=== PATIENT | female | born 1995 | race American Indian/Alaskan Native ===

== ENCOUNTER 2018-09-24 13:00 | Emergency (ER) | payer SELFPAY ==
--- NOTE | 2018-09-24 13:46 | EDM.PDOC ---
ED HPI GENERAL MEDICAL PROBLEM - General Chief Complaint: Upper Extremity Injury/Pain Stated Complaint: L PINKY FINGER INJURY Time Seen by Provider: 09/24/18 13:45 Source of Information: Reports: Patient - History of Present Illness INITIAL COMMENTS - FREE TEXT/NARRATIVE: This is here for evaluation to her left pinky finger. She states that she slipped on the ice this morning fell and landed on it. She states it was just formed, she thought it was dislocated so she straighten it out. Pain has persisted and now bruising. Patient has no previous history of injury to this area. She is overall healthy. Left Finger-Little Pain Score (Numeric/FACES): 8 - Related Data Allergies Allergy/AdvReac Type Severity Reaction Status Date / Time No Known Allergies Allergy Verified 09/24/18 13:33 Home Meds: Home Meds Acetaminophen/HYDROcodone [[place] 325-5 MG] 1 tab PO Q6H PRN #10 tablet 09/24/18 [Rx] Past Medical History - Past Health History Medical/Surgical History: Denies Medical/Surgical History Social & Family History - Tobacco Use Smoking Status *Q: Never Smoker - Caffeine Use Caffeine Use: Reports: Soda, Tea - Recreational Drug Use Recreational Drug Use: No Review of Systems - Review of Systems Review Of Systems: See Below Respiratory: Reports: No Symptoms Cardiovascular: Reports: No Symptoms Musculoskeletal: Reports: Other (Pain to left pinky and into hand.) Skin: Reports: Bruising Neurological: Reports: No Symptoms ED EXAM, GENERAL - Physical Exam Exam: See Below Exam Limited By: No Limitations General Appearance: Alert, WD/WN, No Apparent Distress Respiratory/Chest: No Respiratory Distress, Lungs Clear, Normal Breath Sounds Cardiovascular: Normal Peripheral Pulses, Regular Rate, Rhythm, No Murmur Peripheral Pulses: 2+: Radial (L) Extremities: Other (Area of ecchymosis at the base of the left achy finger over the MCP and into the palm. Full range of motion of all fingers but patient had significant pain with this to her pinky finger. Vascular intact.) Neurological: Alert, Oriented, No Motor/Sensory Deficits Psychiatric: Normal Affect, Normal Mood Lymphatic: No Adenopathy ED TRAUMA EXTREMITY PROCEDURES - Splinting Left Upper Extremity Splint Site: Left ulnar from distal Pre-Procedure NV Status: Normal (splint.) Post-Procedure NV Status: Normal Splint Material: Fiberglass, Ehrberth Tape Splint Design: Volar, Gutter Applied & Form Fitted By: Provider Provider Post-Splint Application NV Check: NV Status Normal, Good Position Complications: No Course - Vital Signs Last Recorded V/S: Last Vital Signs Temp 97.9 F 09/24/18 13:31 Pulse 60 09/24/18 13:31 Resp 20 09/24/18 13:31 BP 127/58 L 09/24/18 13:31 Pulse Ox 97 09/24/18 13:31 - Orders/Labs/Meds Orders: Active Orders 24 hr Category Date Time Status Hand Comp Min 3V Lt [CR] Stat Exams 09/24/18 13:35 Taken Meds: Medications Discontinued Medications Generic Name Dose Route Start Last Admin Trade Name Comfort PRN Reason Stop Dose Admin Acetaminophen 650 mg 09/24/18 14:15 09/24/18 14:48 Tylenol PO 09/24/18 14:16 650 mg NOW ONE Administration - Re-Assessments/Exams Free Text/Narrative Re-Assessment/Exam: Displaced fracture to proximal phalanx of the fifth digit. X-ray reviewed with Dr. Christianson/orthopedics recommends splinting and patient will follow up in clinic on Thursday. Splint was applied, neurovascular intact post application. Recommend ibuprofen as needed for pain, frequent icing. Patient was given a small quantity of [place] for breakthrough pain. She'll follow-up with orthopedics return to the emergency department for any new or worsening symptoms. 09/24/18 20:30 Departure - Departure Time of Disposition: 14:53 Disposition: Home, Self-Care 01 Condition: Good Clinical Impression: Finger fracture, left Qualifiers: Encounter type: initial encounter Finger: little finger Fracture type: closed Phalanx: proximal Fracture alignment: displaced Qualified Code(s): S62.617A - Displaced fracture of proximal phalanx of left little finger, initial encounter for closed fracture - Discharge Information Prescriptions: Acetaminophen/HYDROcodone [[place] 325-5 MG] 1 tab PO Q6H PRN #10 tablet PRN Reason: Pain Instructions: Cast or Splint Care, Adult, [id number] Referrals: Yadira Ballard PA [Emergency Provider] - Forms: ED Department Discharge, ED Return to Work/School Form Additional Instructions: You were evaluated in the emergency department today for a fracture of the left pinky finger. This has been splinted, keep the splint clean and dry. Ice 15 minutes every 1-2 hours. Hydrocodone for breakthrough pain. Try to keep this elevated. Follow-up with orthopedics on Thursday or return to the emergency department for any new or worsening symptoms.. - My Orders Last 24 Hours: My Active Orders 09/24/18 13:35 Hand Comp Min 3V Lt [CR] Stat - Assessment/Plan Last 24 Hours: My Active Orders 09/24/18 13:35 Hand Comp Min 3V Lt [CR] Stat
[2018-09-24] MEDS ORDERED: Acetaminophen 325 MG Tab PO ONE (14:15)
--- NOTE | 2018-09-25 15:18 | CR ---
Left hand: Four views of the left hand were obtained. Comparison: No previous hand exam. Mildly displaced and angulated fracture is identified within the base of the proximal phalanx of the left fifth finger. Soft tissue swelling is noted. No additional fracture or other bony abnormality is appreciated. Impression: 1. Fifth finger fracture as noted above with soft tissue swelling. Diagnostic code #3
== END 2018-09-24 15:09 | disposition home or self-care (01) ==
LOC: JD.ED 13:00
DX: S62.617A Displaced fracture of proximal phalanx of left little finger, initial encounter for closed fracture (principal); W00.0XXA Fall on same level due to ice and snow, initial encounter
CPT/HCPCS: 29125; 73130; 99283; A9270

== ENCOUNTER 2019-03-17 12:57 | Emergency (ER) | payer SELFPAY ==
--- NOTE | 2019-03-17 16:04 | US ---
Left lower extremity deep venous ultrasound: Duplex and color flow imaging was obtained of the left common femoral, proximal greater saphenous, superficial femoral, popliteal, posterior tibial and peroneal veins. Right common femoral vein was also evaluated. Large fluid collection is seen within the lateral calf. Uncertain if this represents a dissecting popliteal cyst or represents liquefying hematoma. Normal phasic flow, augmentation and compression is seen. Impression: 1. Large fluid collection within the lateral calf (measuring about 14.8 cm in greatest length) with differential including dissecting popliteal cyst or liquefying hematoma. 2. No evidence of deep venous thrombosis within the left lower extremity or right common femoral vein. Diagnostic code #3
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
--- NOTE | 2019-03-18 08:16 | CR ---
Left tibia and fibula: Two views of the left tibia and fibula were obtained. Comparison: No previous study. No fracture or other bony abnormality is seen. Soft tissue swelling noted anteriorly. Impression: 1. Soft tissue swelling. 2. No bony abnormality is identified on two-view left tibia and fibula exam. Diagnostic code #2
== END 2019-03-17 17:30 | disposition home or self-care (01) ==
LOC: JD.ED 12:57
DX: S80.12XA Contusion of left lower leg, initial encounter (principal); W10.9XXA Fall (on) (from) unspecified stairs and steps, initial encounter
CPT/HCPCS: 73590-26-LT; 73590-LT; 93971-26-LT; 93971-LT; 99284-25